=== PATIENT | female | born 1975 | race Caucasian/White ===

== ENCOUNTER 2016-04-16 15:53 | Inpatient (IN) | payer OTHER ==
[~2016-04-16] VITALS: Ht 165.1 cm; Wt 101.7 kg
[2016-04-16] MEDS ORDERED: OPTIRAY 350 100 ML VIAL HMH IV ONE (15:54)
[2016-04-16] MEDS ORDERED: PROMETHAZINE 25 MG/ML VIAL ONE (17:17)
[2016-04-16] MEDS ORDERED: HYOSCYAMINE 0.5 MG/ML AMP 1 ML ONE (17:17)
[2016-04-16] MEDS ORDERED: SODIUM CHLORIDE 0.9% 100 ML IV ONE ×2 (17:17→20:29)
[2016-04-16] MEDS ORDERED: ACETAMINOPHEN 325 MG TAB ONE (19:42)
[2016-04-16] MEDS ORDERED: CEFTRIAXONE 1 GM VIAL ONE (20:28)
[2016-04-16 22:15] VITALS: BP_SYST 130; RESP 18; TEMP 96.9
[2016-04-16 22:17] VITALS: Ht 165.1 cm; Wt 101.7 kg
[2016-04-16] MEDS ORDERED: D5-1/2-NS W/KCL 10MEQ/L 1,000 ML IV SCH (22:40)
[2016-04-16] MEDS ORDERED: LEVOFLOXACIN 750 MG/150 ML 150 ML IV ONE (22:40)
[2016-04-16] MEDS ORDERED: NEUPOGEN 480MCG VIAL SUBQ ONE (22:40)
[2016-04-16] MEDS: DILAUDID 1 MG/ML AMP IV PRN (22:56)
[2016-04-16] MEDS: PANTOPRAZOLE 40 MG TAB PO SCH (22:58)
[2016-04-16] MEDS: ALPRAZOLAM 0.25 MG TAB PO SCH (23:59)
[2016-04-17 05:01] VITALS: BP_SYST 120; RESP 18; TEMP 97.1
[2016-04-17] MEDS: ONDANSETRON 4 MG VIAL IV PUSH PRN ×2 (06:59→16:19)
[2016-04-17] MEDS: DILAUDID 1 MG/ML AMP IV PRN ×2 (07:00→16:20)
[2016-04-17 07:54] VITALS: BP_SYST 152; RESP 18; TEMP 97
[2016-04-17] MEDS: LEVOFLOXACIN 750 MG/150 ML 150 ML IV SCH (09:34)
[2016-04-17] MEDS: ALPRAZOLAM 0.25 MG TAB PO SCH ×3 (09:34→21:34)
[2016-04-17 11:02] VITALS: BP_SYST 142; RESP 18; TEMP 98
[2016-04-17] MEDS ORDERED: NEUPOGEN 480MCG VIAL SUBQ ONE (11:55)
[2016-04-17] MEDS ORDERED: D5-1/2-NS W/KCL 10MEQ/L 1,000 ML IV SCH (11:55)
[2016-04-17 15:36] VITALS: BP_SYST 142; RESP 18; TEMP 97.5
[2016-04-17 20:16] VITALS: BP_SYST 122; RESP 18; TEMP 97.6
[2016-04-17] MEDS: ACETAMINOPHEN 325 MG TAB PO PRN (21:22)
[2016-04-17] MEDS: PANTOPRAZOLE 40 MG TAB PO SCH (21:34)
[2016-04-17] MEDS ORDERED: ZOLPIDEM 5 MG TAB PO PRN (21:35)
[2016-04-17 23:45] VITALS: RESP 16
[2016-04-18] MEDS: ONDANSETRON 4 MG VIAL IV PUSH PRN ×3 (00:55→12:27)
[2016-04-18] MEDS: DILAUDID 1 MG/ML AMP IV PRN ×3 (00:58→12:30)
[2016-04-18 01:02] VITALS: BP_SYST 138; RESP 16; TEMP 97.9
[2016-04-18 08:03] VITALS: BP_SYST 130; RESP 20; TEMP 97
[2016-04-18] MEDS ORDERED: MISSING DOSE XX ONE (09:25)
[2016-04-18] MEDS: ALPRAZOLAM 0.25 MG TAB PO SCH (09:31)
[2016-04-18] MEDS: LEVOFLOXACIN 750 MG/150 ML 150 ML IV SCH (09:31)
[2016-04-18 12:02] VITALS: BP_SYST 118; RESP 18; TEMP 98.3
[2016-04-18] MEDS: ACETAMINOPHEN 325 MG TAB PO PRN (12:27)
[2016-04-18 14:16] VITALS: BP_SYST 118; RESP 18; TEMP 98.3
[2016-04-19] MEDS ORDERED: LEVOFLOXACIN 750 MG TAB PO SCH (09:00)
== END 2016-04-18 15:15 | disposition home or self-care (01) | DRG 809 ==
LOC: ENRESERVTM → ENRESERVDT → ENRESERV → CANRESERV → ER 15:53 → ENPENDDIS 20:27 → EMR 20:27 → 4NT 22:07
PROVIDERS: ADMIT Internal Medicine Hematology & Oncology; ATTEND Internal Medicine Hematology & Oncology
DX: D70.9 Neutropenia, unspecified (principal); N39.0 Urinary tract infection, site not specified; F41.9 Anxiety disorder, unspecified; K52.9 Noninfective gastroenteritis and colitis, unspecified; Z85.3 Personal history of malignant neoplasm of breast; Z90.13 Acquired absence of bilateral breasts and nipples; K64.4 Residual hemorrhoidal skin tags
CPT/HCPCS: 36415; 74177; 80053; 81001; 82947; 83690; 84703; 85025; 87040; 87088; 96365; 96367; 96375